=== PATIENT | male | born 1970 | race Caucasian/White ===

== ENCOUNTER 2025-09-09 17:37 | Emergency (ER) | payer OTHER ==
[~2025-09-09] VITALS: Ht 182.9 cm; Wt 77.1 kg
--- NOTE | 2025-09-09 17:55 | ERN ---
ED Note History of Present Illness Stated Complaint: NAUSEA, VOMITING, ABDOMINAL PAIN Chief Complaint: Abdominal Pain Time Seen by MD: 17:41 Time Seen by Midlevel: 17:41 Dictation: The patient is a 55 year old male with history of dm , htn, abd hernia repair who presents to the emergency department with complains of epigastric abd pain, with nausea and non bloody vomiting, one episode of nonbloody diarrhea onset 3 weeks ago . Reports pain radiating to chest. Denies any fevers. Allergies: Coded Allergies: lisinopril (Unverified Allergy, Unknown, 09/09/25) Home Meds Active Scripts Metronidazole (Metronidazole) 500 Mg Tablet, 1 TAB PO TID for 7 Days, #21 TAB 0 Refills Prov:AMADOR TURPIN OUTREACH EDUCATOR 09/09/25 Levofloxacin (Levaquin 750Mg Tabs) 750 Mg Tablet, 750 MG PO DAILY for 7 Days, #7 TAB 0 Refills Prov:TURPINADOLPH JAINLEN OUTREACH EDUCATOR 09/09/25 Past Medical History Past Medical History: Diabetes-Type II, Hypertension Additional Past Medical Hx: GERD Surgical History: Tonsillectomy Surgical History Other: HERNIA REPAIR, RT LOWER LEG SX, NASAL SURGERY RN Note Reviewed/Agreed w/PFSH: Yes Review of System Dictation Constitutional: Negative for fever,chills, and weight loss Eyes: Negative for injury, pain,redness, and discharge ENT: Negative for injury,pain or swelling Cardiovascular: Negative for chest pain, palpitations, and edema Respiratory: Negative for shortness of breath, cough, and wheezing, Abdomen/GI: Negative for abdominal pain, nausea, vomiting, diarrhea, and constipation Back: Negative for injury and pain : Negative for injury, bleeding and discharge MS/Extremity: Negative for injury and deformity Skin: Negative for rash, and discoloration Neuro: Negative for headache, weakness, numbness, tingling, and seizure Psych: Negative for suicide ideation, homicidal ideation, and hallucinations Initial Vital Sign VS Vital Signs Date Time Temp Pulse Resp B/P (MAP) Pulse Ox O2 Delivery O2 Flow Rate FiO2 09/09/25 17:38 98.6 83 16 117/76 96 Room Air 09/09/25 18:15 0 21 Physical Exam Dictation Vital Signs reviewed General Appearance: Alert, oriented x 3, no acute distress, well developed, nourished. Head and Face: non-traumatic. Eyes: PERRL, pink conjunctivas, eyelid no trauma, anterior chamber with arcus senilis. Ears: Pinnas intact and no signs of trauma or erythema ear canals clear and no discharge TM no erythema Nose: No discharge, no bleeding. Oropharynx: Mouth normal, tongue pink. pharynx clear,no erythema, tonsils no exudates, no abscesses noted, mucous membrane moist Neck: Supple, non-tender, no thyromegaly, no masses, no JVD, no bruits Breast:Deferred Chest:No tenderness, no crepitus, no paradoxical movement, no retractions Lungs:Clear, well-ventilated, symmetric, no rales, no wheezing, no rhonchi, no stridor, good breath sounds bilaterally Heart: Regular rate, regular rhythm, no murmur, no gallops Vascular: no peripheral edema, Abdomen: Soft, positive bowel sounds, nondistended, no guarding, nontender, no rebound, no masses no hepatomegaly, no splenomegaly, no Matthew's sign, no hernias. Rectal: Deferred Genital: Deferred Neurological: Normal speech, motor function intact, sensory function intact Musculoskeletal: Neck nontender, full range of motion, back nontender, full range of motion, Extremities: nontender, full range of motion Skin: Color pink, dry, no turgor, no rash, no lacerations, no abrasions, no contusions. Lymphatic: Deferred Results (Laboratory/Radiology) Laboratory/Radiology Laboratory Tests Test 09/09/25 17:56 09/09/25 18:07 White Blood Count 12.1 K/uL (4.8-10.8) H Red Blood Count 5.70 MIL/uL (4.50-6.20) Hemoglobin 16.2 g/dL (14.0-18.0) Hematocrit 50.2 % (42-54) Mean Corpuscular Volume 88.1 fL (79-99) Mean Corpuscular Hemoglobin 28.4 pg (27.0-33.0) Mean Corpuscular Hemoglobin Concent 32.3 g/dL (32.0-36.0) Red Cell Distribution Width 12.8 % (11.0-15.5) Platelet Count 286 K/uL (130-400) Mean Platelet Volume 9.4 fL (7.5-10.5) Immature Granulocyte % (Auto) 0.3 % (0-1) Neutrophils (%) (Auto) 71.7 % (40.0-77.0) Lymphocytes (%) (Auto) 16.1 % (21.0-51.0) L Monocytes (%) (Auto) 10.7 % (3.0-13.0) Eosinophils (%) (Auto) 0.6 % (0.0-8.0) Basophils (%) (Auto) 0.6 % (0.0-5.0) Neutrophils # (Auto) 8.7 K/uL (1.8-7.7) H Lymphocytes # (Auto) 2.0 K/uL (1.0-4.8) Monocytes # (Auto) 1.3 K/uL (0.1-1.0) H Eosinophils # (Auto) 0.07 K/uL (0.00-0.70) Basophils # (Auto) 0.07 K/uL (0.00-0.20) Absolute Immature Granulocyte (auto 0.04 K/uL (0-1) Nucleated Red Blood Cells 0.0 % (0.0-0.19) Sodium Level 138 mmol/L (136-145) Potassium Level 4.2 mmol/L (3.5-5.1) Chloride Level 100 mmol/L (101-111) L Carbon Dioxide Level 23 mmol/L (21-32) Blood Urea Nitrogen 20 mg/dL (7-18) H Creatinine 0.9 mg/dL (0.5-1.3) Glomerular Filtration Rate Calc 102 mL/min (>90) Random Glucose 82 mg/dL (70-105) Total Calcium 9.9 mg/dL (8.5-10.1) Magnesium Level 2.10 mg/dL (1.80-2.40) Total Bilirubin 0.6 mg/dL (0.2-1.0) Direct Bilirubin 0.1 mg/dL (0.0-0.3) Aspartate Amino Transf (AST/SGOT) 21 U/L (10-37) Alanine Aminotransferase (ALT/SGPT) 21 U/L (12-78) Alkaline Phosphatase 109 U/L (50-136) Total Creatine Kinase 30 U/L (21-232) Troponin I High Sensitivity 4 ng/L (4-75) Total Protein 8.1 g/dL (6.0-8.3) Albumin 3.8 g/dL (3.5-5.0) Lipase 98 U/L (16-77) H Urine Color LIGHT-YELLOW (YELLOW) Urine Appearance CLEAR (CLEAR) Urine pH 5.5 (5.0-8.0) Urine Specific [place] 1.039 (1.001-1.031) Urine Protein 10 mg/dL (NEGATIVE) H Urine Glucose (UA) >=1000 mg/dL (NEGATIVE) H Urine Ketones 150 mg/dL (NEGATIVE) H Urine Occult Blood NEGATIVE (NEGATIVE) Urine Nitrate NEGATIVE (NEGATIVE) Urine Bilirubin NEGATIVE mg/dL (NEGATIVE) Urine Urobilinogen 0.2 mg/dL (0.2-1.0) Urine Leukocyte Esterase NEGATIVE [place]/uL Urine RBC 0-1 /HPF (0-1) Urine WBC 0-1 /HPF (0-1) Urine Squamous Epithelial Cells RARE /HPF (0-2) Urine Bacteria RARE /HPF (None Seen) REASON: cp ORDERING PHYSICIAN: AMADOR TURPIN OUTREACH EDUCATOR PROCEDURE: CXR1VW - CHEST 1VW EXAM: CR Chest, 1 View. CLINICAL HISTORY: cp COMPARISON: None provided. FINDINGS: LUNGS: The lungs show no infiltrate or other acute finding. PLEURAL SPACES: No pleural effusion or pneumothorax. MEDIASTINUM: Cardiac size and mediastinal contours within normal limits. BONES: No aggressive appearing osseous lesion seen. IMPRESSION: No acute cardiopulmonary pathology is evident. /[place] REASON: upper abd pain ORDERING PHYSICIAN: AMADOR TURPIN OUTREACH EDUCATOR PROCEDURE: ABD PEL W - CT ABDOMEN/PELVIS W/CONTRAST EXAM: CT Abdomen and Pelvis with IV contrast CLINICAL HISTORY: Upper abdominal pain TECHNIQUE: Axial computed tomography images of the abdomen and pelvis with intravenous contrast. COMPARISON: None provided. FINDINGS: LUNG BASES: Mild subsegmental atelectasis in the bilateral lung bases. LIVER: Unremarkable. GALLBLADDER AND BILE DUCTS: Minimally distended gallbladder. No biliary ductal dilatation is evident. PANCREAS: Well-defined hypodense cyst measuring 1 x 1 cm in the head of the pancreas. SPLEEN: Unremarkable. ADRENAL GLANDS: Unremarkable. KIDNEYS, URETERS, AND BLADDER: Few subcentimeter cortical cysts in the bilateral kidneys. Left renal parapelvic cyst. There is no hydronephrosis or hydroureter. No urinary calculi are seen. Unremarkable urinary bladder. STOMACH AND BOWEL: The stomach appears mildly overdistended. Mild diffuse wall thickening in the stomach and small bowel loops, concerning mild acute gastroenteritis. Colonic diverticulosis with mild wall thickening and prominent vasa recta around the sigmoid colon, concerning mild acute sigmoid diverticulitis. APPENDIX: No evidence of acute appendicitis on CT examination. PERITONEUM: No free fluid. No free air. LYMPH NODES: No lymphadenopathy is evident. REPRODUCTIVE: Unremarkable as visualized. VASCULATURE: No evidence of abdominal aortic aneurysm. BONES: No aggressive appearing osseous lesion. No acute osseous pathology is evident. Umbilical hernia measuring 6-7 mm with herniation of omental fat. IMPRESSION: Mild acute gastroenteritis with questionable gastric outlet obstruction and over distended stomach. Colonic diverticulosis with mild wall thickening and prominent vasa recta around the sigmoid colon, concerning mild acute sigmoid diverticulitis. Parapelvic renal cyst on the left side. Well-defined hypodense cyst in the head of the pancreas. Few subcentimeter cortical cysts in the bilateral kidneys. Bosniak category I. Small umbilical hernia. /[place] [facility] Reviewed?: Yes EKG: (+) rhythm (Sinus rhythm) EKG Comment: Date:09/09/2025 Time:1751 Ventricular rate:81 OK interval:143 QRS duration:90 QT/QTc:363/421 EKG interpretation: Sinus rhythm Reviewed by ED Attending no STEMI ED Course ED Course Orders Procedure Category Date Status Time Cbc With Differential LAB 09/09/25 Complete 17:49 Troponin I High LAB 09/09/25 Complete Sensitivity 17:49 Urinalysis Profile LAB 09/09/25 Complete 17:49 12 Lead Ekg Tracing- EKG 09/09/25 Complete Technical 17:49 0.9%Nacl 1000ml (Ns PHA 09/09/25 Complete 1000ml) 18:00 Ondansetron 4mg Inj PHA 09/09/25 Complete (Zofran 4mg Inj) 18:00 Pantoprazole 40mg Inj PHA 09/09/25 Complete (Protonix 40mg Inj 18:00 Creatine Kinase, Total LAB 09/09/25 Complete 17:49 Chest 1vw RAD 09/09/25 Resulted 17:49 Lipase LAB 09/09/25 Complete 17:49 Basic Metabolic Panel LAB 09/09/25 Complete 17:49 Hepatic Function Panel LAB 09/09/25 Complete 17:49 Magnesium LAB 09/09/25 Complete 17:49 Ct Abdomen/Pelvis CT 09/09/25 Resulted W/Contrast 18:39 Iohexol (Omnipaque) PHA 09/09/25 Complete 18:57 *Nursing CPOE 09/09/25 Transmitted Communication: 21:08 Levofloxacin 750mg PHA 09/09/25 Complete Tab (Levaquin 750mg T 21:30 Metronidazole (Flagyl) PHA 09/09/25 Complete 21:30 Current Medications Medications (Trade) Dose Ordered Sig/Kunal Route PRN Reason Start Time Stop Time Status Last Admin Dose Admin Iohexol (Omnipaque) 75 ml STK-MED ONCE IV 09/09/25 18:57 09/09/25 18:57 DC Levofloxacin (LEvaquIN 750MG TAB) 750 mg ONCE ONCE PO 09/09/25 21:30 09/09/25 21:31 DC 09/09/25 21:25 Metronidazole (flaGYL) 500 mg ONCE ONCE PO 09/09/25 21:30 09/09/25 21:31 DC 09/09/25 21:24 Ondansetron HCl (zoFRAN 4MG INJ) 4 mg ONCE ONCE IVP 09/09/25 18:00 09/09/25 18:01 DC 09/09/25 18:16 Pantoprazole Sodium (PROTonix 40MG INJ) 40 mg ONCE ONCE IVP 09/09/25 18:00 09/09/25 18:01 DC 09/09/25 18:16 Sodium Chloride 1,000 ml @ 0 mls/hr ONCE ONCE IV 09/09/25 18:00 09/09/25 18:01 DC 09/09/25 18:16 Vital Signs Date Time Temp Pulse Resp B/P (MAP) Pulse Ox O2 Delivery O2 Flow Rate FiO2 09/09/25 19:50 99.0 67 17 114/70 97 Room Air* 0 21 09/09/25 18:15 99.0 64 18 113/72 97 Room Air* 0 21 09/09/25 17:38 98.6 83 16 117/76 96 Room Air Medical Decision Making MDM The patient is a 55 year old male with history of dm , htn, abd hernia repair who presents to the emergency department with complains of epigastric abd pain, with nausea and non bloody vomiting, one episode of nonbloody diarrhea onset 3 weeks ago . Reports pain radiating to chest. Denies any fevers. CBC showed mild leukocytosis, no anemia, chemistry showed mild hypochloremia, normal renal function, slightly elevated lipase, negative liver enzymes, negative troponin. Chest x-ray was normal. CT abdomen and pelvis showed mild acute gastroenteritis with questionable gastric outlet obstruction. Mild acute sigmoid diverticulitis. I discussed case with Dr. Aponte who states patient can be admitted if he is unable to tolerated p.o. at home. I discussed with the patient the possibility of admission for IV fluids and IV antibiotics if patient is not able to tolerated p.o. intake. At this time patient does not want to be admitted to the hospital and would rather be discharge. Patient reports that he works with a [employer] you can get seen with them on Thursday. Patient was able to tolerated p.o. intake. We will discharged to follow up with PCP. Differential diagnosis: Gastroenteritis, gastritis, pancreatitis, electrolyte imbalance, dehydration Need for hospitalization: Patient does not meet criteria for hospitalization. There are no social concerns with this patient. 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 Take your medications as prescribed. Avoid any alcohol while taking your antibiotics because these can cause severe side effects. If you develop severe nausea or vomiting or severe abdominal pain please return to ER. FOLLOW-UP WITH PRIMARY CARE PROVIDER IN 1 TO 2 DAYS. TAKE MEDICATIONS DIRECTED HERE IN THE EMERGENCY ROOM. OKAY TO CONTINUE HOME MEDICATIONS UNLESS OTHERWISE DISCUSSED DURING YOUR VISIT IN THE EMERGENCY ROOM TODAY. RETURN TO YOUR NEAREST EMERGENCY ROOM IF SYMPTOMS WORSEN OR IF THERE IS NO IMPROVEMENT. CALL 911 IF YOU NEED IMMEDIATE ASSISTANCE. TAKE TYLENOL [id number] NEEDED AND IF NO CONTRAINDICATIONS ARE PRESENT. INCREASE ORAL HYDRATION. A WOUND CULTURE OR URINE CULTURE WAS ORDERED HERE IN THE EMERGENCY ROOM DEPARTMENT PLEASE FOLLOW-UP WITH PRIMARY CARE PROVIDER AND ADVISE THEM TO GET REPEAT PORTS FROM OUR FACILITY. IF YOU HAD ANY WADE WRAP/SPLINTS THAT WERE APPLIED HERE, PLEASE DO NOT REMOVE THEM UNTIL YOU SEE YOUR PRIMARY CARE OR SPECIALTY. Referrals: MYLES CHONG MD Time of Disposition: 22:04 I have reviewed the case, and I agree with, Diagnosis and Plan AMADOR TURPIN OUTREACH EDUCATOR Sep 09, 2025 17:55
--- NOTE | 2025-09-09 17:57 | EKG ---
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
[2025-09-09 18:15] LABS: IMMATURE GRANULOCYTE ABSOLUTE 0.04 K/uL (0-1); NUCLEATED RED BLOOD CELLS 0.0 % (0.0-0.19); PLATELET COUNT (AUTO) 286 K/uL (130-400); RED BLOOD CELL COUNT(AUTO) 5.70 MIL/uL (4.50-6.20); RED CELL DISTRIBUTION WIDTH 12.8 % (11.0-15.5); WHITE BLOOD COUNT (AUTO) 12.1 K/uL (4.8-10.8)
[2025-09-09] MEDS: 0.9%NACL 1000ML 1,000 ML IV ONE (18:16)
[2025-09-09 18:24] LABS: CREATININE 0.9 mg/dL (0.5-1.3); GLOMERULAR FILTR. RATE CALC 102.0 mL/min (>90); GLUCOSE,RANDOM 82.0 mg/dL (70-105); SODIUM SERUM 138.0 mmol/L (136-145); UREA NITROGEN, BLOOD 20.0 mg/dL (7-18)
[2025-09-09 18:37] LABS: ASPARTATE AMINOTRANSFERASE 21.0 U/L (10-37); CREATINE KINASE, TOTAL 30.0 U/L (21-232); TOTAL PROTEIN, SERUM 8.1 g/dL (6.0-8.3)
[2025-09-09 18:48] LABS: ADD UA MICROSCOPIC YES; APPEARANCE,URINE CLEAR (CLEAR); GLUCOSE, URINE (UA) >=1000 mg/dL (NEGATIVE); LEUKOCYTE ESTERASE ,URINE NEGATIVE Leu/uL (NEGATIVE); NITRATE,URINE NEGATIVE (NEGATIVE); OCCULT BLOOD,URINE NEGATIVE (NEGATIVE)
[2025-09-09 18:49] LABS: SQUAMOUS EPITHELIAL CELL,UR RARE /HPF (0-2)
[2025-09-09] MEDS ORDERED: IOHEXOL-350 75 ML VIAL IV ONE (18:57)
--- NOTE | 2025-09-09 19:32 | NUR ---
PT CARE ASSUMED AT THIS TIME
--- NOTE | 2025-09-09 20:09 | HMCIMG ---
EXAM: CR Chest, 1 View. CLINICAL HISTORY: cp COMPARISON: None provided. FINDINGS: LUNGS: The lungs show no infiltrate or other acute finding. PLEURAL SPACES: No pleural effusion or pneumothorax. MEDIASTINUM: Cardiac size and mediastinal contours within normal limits. BONES: No aggressive appearing osseous lesion seen. IMPRESSION: No acute cardiopulmonary pathology is evident. /[place]
--- NOTE | 2025-09-09 20:46 | HMCIMG ---
EXAM: CT Abdomen and Pelvis with IV contrast CLINICAL HISTORY: Upper abdominal pain TECHNIQUE: Axial computed tomography images of the abdomen and pelvis with intravenous contrast. COMPARISON: None provided. FINDINGS: LUNG BASES: Mild subsegmental atelectasis in the bilateral lung bases. LIVER: Unremarkable. GALLBLADDER AND BILE DUCTS: Minimally distended gallbladder. No biliary ductal dilatation is evident. PANCREAS: Well-defined hypodense cyst measuring 1 x 1 cm in the head of the pancreas. SPLEEN: Unremarkable. ADRENAL GLANDS: Unremarkable. KIDNEYS, URETERS, AND BLADDER: Few subcentimeter cortical cysts in the bilateral kidneys. Left renal parapelvic cyst. There is no hydronephrosis or hydroureter. No urinary calculi are seen. Unremarkable urinary bladder. STOMACH AND BOWEL: The stomach appears mildly overdistended. Mild diffuse wall thickening in the stomach and small bowel loops, concerning mild acute gastroenteritis. Colonic diverticulosis with mild wall thickening and prominent vasa recta around the sigmoid colon, concerning mild acute sigmoid diverticulitis. APPENDIX: No evidence of acute appendicitis on CT examination. PERITONEUM: No free fluid. No free air. LYMPH NODES: No lymphadenopathy is evident. REPRODUCTIVE: Unremarkable as visualized. VASCULATURE: No evidence of abdominal aortic aneurysm. BONES: No aggressive appearing osseous lesion. No acute osseous pathology is evident. Umbilical hernia measuring 6-7 mm with herniation of omental fat. IMPRESSION: Mild acute gastroenteritis with questionable gastric outlet obstruction and over distended stomach. Colonic diverticulosis with mild wall thickening and prominent vasa recta around the sigmoid colon, concerning mild acute sigmoid diverticulitis. Parapelvic renal cyst on the left side. Well-defined hypodense cyst in the head of the pancreas. Few subcentimeter cortical cysts in the bilateral kidneys. Bosniak category I. Small umbilical hernia. /[place]
--- NOTE | 2025-09-09 21:29 | NUR ---
ORAL FLUIDS PROVIDED TO PT ORDERED BY LISA ENGLISH FOR PO CHALLENGE
[2025-09-09] MEDS ORDERED: LEVO750T68 PO (22:03)
[2025-09-09] MEDS ORDERED: METR-172 PO (22:03)
[2025-09-09 22:15] VITALS: BP 106/66; PULSE 62; RESP 15; TEMP 98.6; O2SAT 98
--- NOTE | 2025-09-09 22:16 | NUR ---
PT TOLERATED ORAL FLUIDS WEL. NO N/V REPORTED.
== END 2025-09-09 22:27 | disposition home or self-care (01) ==
LOC: EDH 17:37
DX: K57.32 Diverticulitis of large intestine without perforation or abscess without bleeding (principal); K52.9 Noninfective gastroenteritis and colitis, unspecified; E11.9 Type 2 diabetes mellitus without complications; I10 Essential (primary) hypertension; Z88.8 Allergy status to other drugs, medicaments and biological substances; Z90.89 Acquired absence of other organs; Z98.890 Other specified postprocedural states
CPT/HCPCS: 99285; 74177; 96374; 96361; 71045; 96375; 82550; 80076; 83735; 84484; 80048; 83690; 85025; 81001; 36415; 93005; J7030; J2405; J2470; Q9967